=== PATIENT | male | born 1975 | race Caucasian/White ===

== ENCOUNTER 2019-01-25 03:38 | Emergency (ER) | payer BC, OTHER ==
[2019-01-25] MEDS ORDERED: MORPHINE 4 MG/ML SYR ONE (04:12)
[2019-01-25] MEDS ORDERED: ONDANSETRON 4 MG/2 ML VIAL ONE (04:12)
[2019-01-25] MEDS ORDERED: NA CHLORIDE 0.9% 1,000 ML ONE (04:12)
[2019-01-25 04:23] LABS: Absolute Lymphocytes (CBC) 0.7 K/uL (0.7-4.9); Absolute Monocytes 0.5 K/uL (0.1-1.3); Absolute Neutrophil 12.4 K/uL (1.8-8.0); Basophils % 0.4 % (0-1.3); Hematocrit 47.7 % (39.6-49.0); Lymphocytes % 5.4 % (15.3-44.8); MPV 10.2 fL (7.6-11.3); Monocytes % 3.5 % (3.3-12.3); RBC Red Blood Cell Count 5.34 M/uL (4.33-5.43)
[2019-01-25 04:34] LABS: Urine Blood 3+ (NEG); Urine Glucose NEGATIVE (NEG); Urine Protein 1+ (NEG); Urine Specific Gravity >1.030 (1.005-1.030); Urine pH 5.5 (5.0-7.0)
[2019-01-25 04:40] LABS: Albumin 4.3 g/dL (3.4-5.0); Bilirubin Direct 0.2 mg/dL (0-0.2); Bilirubin Total 0.7 mg/dL (0.2-1.0); Potassium 3.7 mmol/L (3.5-5.1); Protein, Total 8.2 g/dL (6.4-8.2)
[2019-01-25] MEDS ORDERED: KETOROLAC 30 MG/ML INJ ONE (05:05)
[2019-01-25] MEDS ORDERED: TAMSULOSIN 0.4 MG SR CAP ONE (05:05)
[2019-01-25] MEDS ORDERED: MAGNESIUM SULFATE 1 gm IVPB 1 GM/100 ML BAG IV ONE (05:06)
--- NOTE | 2019-01-25 06:17 | ER ---
Nurse's Notes [facility] Name: Myles Kingsley Age: 43 yrs Sex: Male : 1975 Arrival Date: 01/25/2019 Time: 03:39 Bed 19 Private MD: Diagnosis: Ureterolithiasis Presentation: 01/25 03:46 Presenting complaint: Patient states: at 0800 on 01/24/19 left flank pain and lower abd ak1 pain X3 hours. pain resolved and returned at 2100 after dinner. pt c/o N/V. Transition of care: patient was not received from another setting of care. Onset of symptoms was January 24, 2019. Risk Assessment: Do you want to hurt yourself or someone else? Patient reports no desire to harm self or others. Initial Sepsis Screen: Does the patient meet any 2 criteria? No. Patient's initial sepsis screen is negative. Does the patient have a suspected source of infection? No. Patient's initial sepsis screen is negative. Care prior to arrival: None. 03:46 Method Of Arrival: Ambulatory ak1 03:46 Acuity: ELBA 3 ak1 Triage Assessment: 03:46 General: Appears in no apparent distress. Behavior is cooperative. Pain: Complains of ak1 pain in left flank, lower abd. Historical: - Allergies: 03:46 No Known Allergies; ak1 - Home Meds: 03:46 None [Active]; ak1 - PMHx: 03:46 None; ak1 - PSHx: 03:46 None; ak1 - Immunization history:: Adult Immunizations not up to date. - Social history:: Smoking status: Patient/guardian denies using tobacco. - Ebola Screening: : No symptoms or risks identified at this time. - Family history:: not pertinent. - Hospitalizations: : No recent hospitalization is reported. Screenin:48 Abuse screen: Denies threats or abuse. Denies injuries from another. Nutritional rr5 screening: No deficits noted. Tuberculosis screening: No symptoms or risk factors identified. Fall Risk IV access (20 points). Total Strange Fall Scale indicates No Risk (0-24 pts). Assessment: 03:45 General: Appears in no apparent distress. uncomfortable, Behavior is calm, cooperative, rr5 appropriate for age. Pain: Complains of pain in right lower quadrant and left lower quadrant Pain radiates to flank Pain currently is 9 out of 10 on a pain scale. Quality of pain is described as aching, Pain began gradually, Is intermittent. 03:45 Neuro: Level of Consciousness is awake, alert, obeys commands, Oriented to person, rr5 place, time, situation, Appropriate for age. Cardiovascular: Capillary refill < 3 seconds Patient's skin is warm and dry. Respiratory: Airway is patent Respiratory effort is even, unlabored, Respiratory pattern is regular, symmetrical. GI: Abdomen is round Bowel sounds present X 4 quads. Abd is non tender Guarding noted in right lower quadrant and left lower quadrant Reports lower abdominal pain, nausea, vomiting. : No signs and/or symptoms were reported regarding the genitourinary system. EENT: No signs and/or symptoms were reported regarding the EENT system. Derm: Skin is intact, Skin temperature is warm. Musculoskeletal: Capillary refill < 3 seconds, Range of motion: intact in all extremities. 04:45 Reassessment: Patient appears in no apparent distress at this time. Patient is alert, rr5 oriented x 3, equal unlabored respirations, skin warm/dry/pink. on side lying position, feels much better now. Patient states feeling better. Patient states symptoms have improved. 05:47 Reassessment: Patient appears in no apparent distress at this time. Patient and/or rr5 family updated on plan of care and expected duration. Pain level reassessed. Patient is alert, oriented x 3, equal unlabored respirations, skin warm/dry/pink. i feel better now. zero pain as verbalized by the patient. Patient denies pain at this time. Patient states feeling better. Patient states symptoms have improved. 06:40 Reassessment: Patient appears in no apparent distress at this time. Patient and/or rr5 family updated on plan of care and expected duration. Pain level reassessed. Patient is alert, oriented x 3, equal unlabored respirations, skin warm/dry/pink. discharge instruction given and explained without complaints made. Patient denies pain at this time. Patient states feeling better. Patient states symptoms have improved. Vital Signs: 03:44 BP 148 / 98; Pulse 98; Resp 16; Pulse Ox 98% on R/A; Weight 82.55 kg (R); Height 5 ft. ak1 10 in. (177.80 cm) (R); Pain 9/10; 03:46 Temp 99.1; rr5 04:45 BP 147 / 99; Pulse 83; Resp 18; Pulse Ox 98% on R/A; Pain 4/10; rr5 05:45 BP 138 / 95; Pulse 80; Resp 16; Pulse Ox 99% ; Pain 0/10; rr5 06:30 BP 128 / 85; Pulse 75; Resp 17; Temp 98.6; Pulse Ox 99% ; Pain 0/10; rr5 03:44 Body Mass Index 26.11 (82.55 kg, 177.80 cm) ak1 ED Course: 03:39 Patient arrived in ED. am2 03:39 Marquise Kebede MD is Attending Physician. rn 03:45 Arm band placed on Patient placed in an exam room, on a stretcher, on pulse oximetry, ak1 Patient notified of wait time. 03:46 Sam Kramer, EFREN is Primary Nurse. rr5 03:48 Triage completed. ak1 03:48 Patient has correct armband on for positive identification. Bed in low position. Call rr5 light in reach. Pulse ox on. NIBP on. 04:11 CT Stone Protocol In Process Unspecified. EDMS 04:15 Inserted saline lock: 22 gauge in right antecubital area, using aseptic technique. cm6 06:16 Beth August MD is Referral Physician. rn 06:41 No provider procedures requiring assistance completed. IV discontinued, intact, rr5 bleeding controlled, No redness/swelling at site. Pressure dressing applied. Administered Medications: 04:20 Drug: Zofran 4 mg Route: IVP; Site: right antecubital; rr5 05:20 Follow up: Response: No adverse reaction rr5 04:20 Drug: NS 0.9% 1000 ml Route: IV; Rate: 1000 ml; Site: right antecubital; rr5 05:30 Follow up: Response: No adverse reaction; IV Status: Completed infusion; IV Intake: rr5 1000ml 04:23 Drug: morphine 4 mg Route: IVP; Site: right antecubital; rr5 05:49 Follow up: Response: No adverse reaction rr5 04:54 Drug: Magnesium Sulfate 1 grams Route: IVPB; Infused Over: 1 hrs; Site: right rr5 antecubital; 05:49 Follow up: Response: No adverse reaction; Marked relief of symptoms; IV Status: rr5 Completed infusion; IV Intake: 100ml 04:55 Drug: TORadol - Ketorolac 15 mg Route: IVP; Site: right antecubital; rr5 05:49 Follow up: Response: No adverse reaction rr5 04:55 Drug: Flomax 0.4 mg Route: PO; rr5 05:49 Follow up: Response: No adverse reaction rr5 Intake: 05:30 IV: 1000ml; Total: 1000ml. rr5 05:49 IV: 100ml; Total: 1100ml. rr5 Outcome: 06:16 Discharge ordered by . rn 06:41 Discharged to home ambulatory, with family. rr5 06:41 Condition: stable 06:41 Discharge instructions given to patient, Instructed on discharge instructions, follow up and referral plans. medication usage, Demonstrated understanding of instructions, follow-up care, medications, Prescriptions given X 3. 06:43 Patient left the ED. rr5 Signatures: Dispatcher [employer] EDMarquise Ramírez MD MD rn Krenek, Amber, RN RN ak1 Marleny Huitron Raymond, RN RN rr5 Sarahy Marroquin 6
--- NOTE | 2019-01-25 06:17 | EDPHYS ---
Physician Documentation [facility] Name: Myles Kingsley Age: 43 yrs Sex: Male : 1975 Arrival Date: 01/25/2019 Time: 03:39 Bed 19 Private MD: ED Physician Marquise Kebede HPI: 01/25 06:11 This 43 yrs old Male presents to ER via Ambulatory with complaints of rn Abdominal Pain. 06:11 The patient presents with abdominal pain in the left lower quadrant. Onset: The rn symptoms/episode began/occurred yesterday. The symptoms do not radiate. Associated signs and symptoms: Pertinent positives: nausea and vomiting, nausea, Pertinent negatives: blood in stools, chest pain, constipation, diarrhea, fever. Modifying factors: The symptoms are alleviated by nothing, the symptoms are aggravated by nothing. Severity of pain: At its worst the pain was moderate in the emergency department the pain is unchanged. The patient has not experienced similar symptoms in the past. Reports left flank pain and LLQ abd pain, assoc with nausea, went away yesterday then returned today, had darker than normal urine. No fever. . Historical: - Allergies: 03:46 No Known Allergies; ak1 - Home Meds: 03:46 None [Active]; ak1 - PMHx: 03:46 None; ak1 - PSHx: 03:46 None; ak1 - Immunization history:: Adult Immunizations not up to date. - Social history:: Smoking status: Patient/guardian denies using tobacco. - Ebola Screening: : No symptoms or risks identified at this time. - Family history:: not pertinent. - Hospitalizations: : No recent hospitalization is reported. ROS: 06:11 Constitutional: Negative for fever, chills, and weight loss, Eyes: Negative for injury, rn pain, redness, and discharge, Cardiovascular: Negative for chest pain, palpitations, and edema, Respiratory: Negative for shortness of breath, cough, wheezing, and pleuritic chest pain, Abdomen/GI: + left abd pain : + dysuria and dark urine MS/Extremity: Negative for injury and deformity, Skin: Negative for injury, rash, and discoloration, Neuro: Negative for headache, weakness, numbness, tingling, and seizure. Exam: 06:11 Constitutional: This is a well developed, well nourished patient who is awake, alert, rn appears uncomfortable Head/Face: Normocephalic, atraumatic. ENT: dry MM Cardiovascular: Regular rate and rhythm, No pulse deficits. Respiratory: Lungs have equal breath sounds bilaterally, clear to auscultation. No increased work of breathing, no retractions or nasal flaring. Abdomen/GI: soft, mild bilateral lower abd tenderness, no rebound Back: No spinal tenderness. No costovertebral tenderness. Full range of motion. Skin: Warm, dry MS/ Extremity: Pulses equal, no cyanosis. Neurovascular intact. Full, normal range of motion. Equal circumference. Neuro: Awake and alert, GCS 15, oriented to person, place, time, and situation. Cranial nerves II-XII grossly intact. Motor strength 5/5 in all extremities. Sensory grossly intact. Vital Signs: 03:44 BP 148 / 98; Pulse 98; Resp 16; Pulse Ox 98% on R/A; Weight 82.55 kg (R); Height 5 ft. ak1 10 in. (177.80 cm) (R); Pain 9/10; 03:46 Temp 99.1; rr5 04:45 BP 147 / 99; Pulse 83; Resp 18; Pulse Ox 98% on R/A; Pain 4/10; rr5 05:45 BP 138 / 95; Pulse 80; Resp 16; Pulse Ox 99% ; Pain 0/10; rr5 06:30 BP 128 / 85; Pulse 75; Resp 17; Temp 98.6; Pulse Ox 99% ; Pain 0/10; rr5 03:44 Body Mass Index 26.11 (82.55 kg, 177.80 cm) ak1 MDM: 03:39 Patient medically screened. rn 06:11 Differential diagnosis: diverticulitis, non-specific abd pain, Ureterolithiasis, rn urinary tract infection. Data reviewed: vital signs, nurses notes, lab test result(s), radiologic studies, CT scan, and as a result, I will discharge patient. Counseling: I had a detailed discussion with the patient and/or guardian regarding: the historical points, exam findings, and any diagnostic results supporting the discharge/admit diagnosis, lab results, radiology results, the need for outpatient follow up, to return to the emergency department if symptoms worsen or persist or if there are any questions or concerns that arise at home. Response to treatment: the patient's symptoms have markedly improved after treatment, the patient's condition has returned to base line, the patient is now symptom free, patient is well hydrated. and as a result, I will discharge patient. Special discussion: I discussed with the patient/guardian in detail that at this point there is no indication for admission to the hospital. It is understood, however, that if the symptoms persist or worsen the patient needs to return immediately for re-evaluation. Based on the history and exam findings, there is no indication for further emergent testing or inpatient evaluation. I discussed with the patient/guardian the need to see the urologist for further evaluation of the symptoms. 01/25 03:53 Order name: Basic Metabolic Panel; Complete Time: 04:46 rn 01/25 03:53 Order name: CBC with Diff; Complete Time: 04:46 rn 01/25 03:53 Order name: Hepatic Function; Complete Time: 04:46 rn 01/25 03:53 Order name: Lipase; Complete Time: 04:46 rn 01/25 03:53 Order name: CT Stone Protocol rn 01/25 04:30 Order name: Urine Dipstick--Ancillary (enter results); Complete Time: 04:46 ak1 01/25 03:53 Order name: IV Saline Lock; Complete Time: 04:19 rn 01/25 03:53 Order name: Labs collected and sent; Complete Time: 04:19 rn Administered Medications: 04:20 Drug: Zofran 4 mg Route: IVP; Site: right antecubital; rr5 05:20 Follow up: Response: No adverse reaction rr5 04:20 Drug: NS 0.9% 1000 ml Route: IV; Rate: 1000 ml; Site: right antecubital; rr5 05:30 Follow up: Response: No adverse reaction; IV Status: Completed infusion; IV Intake: rr5 1000ml 04:23 Drug: morphine 4 mg Route: IVP; Site: right antecubital; rr5 05:49 Follow up: Response: No adverse reaction rr5 04:54 Drug: Magnesium Sulfate 1 grams Route: IVPB; Infused Over: 1 hrs; Site: right rr5 antecubital; 05:49 Follow up: Response: No adverse reaction; Marked relief of symptoms; IV Status: rr5 Completed infusion; IV Intake: 100ml 04:55 Drug: TORadol - Ketorolac 15 mg Route: IVP; Site: right antecubital; rr5 05:49 Follow up: Response: No adverse reaction rr5 04:55 Drug: Flomax 0.4 mg Route: PO; rr5 05:49 Follow up: Response: No adverse reaction rr5 Disposition: 01/25/19 06:16 Discharged to Home. Impression: Ureterolithiasis. - Condition is Stable. - Discharge Instructions: Kidney Stones, Dietary Guidelines to Help Prevent Kidney Stones. - Prescriptions for Ibuprofen 800 mg Oral Tablet - take 1 tablet by ORAL route every 12 hours As needed take with food; 20 tablet. Tylenol- Codeine #3 300-30 mg Oral Tablet - take 1 tablet by ORAL route every 6 hours As needed; 20 tablet. Zofran ODT 4 mg Oral tablet,disintegrating - place 1 tablet by TRANSLINGUAL route every 8 hours As needed; 20 tablet. - Medication Reconciliation Form, Thank You Letter, Antibiotic Education, Prescription Opioid Use form. - Follow up: Beth August MD; When: As needed; Reason: Recheck today's complaints, Re-evaluation by your physician. - Problem is new. - Symptoms have improved. Signatures: Dispatcher [employer] EDMS Marquise Kebede MD MD rn Krenek, Amber RN RN ak1 Sam Kramer RN RN rr5 Corrections: (The following items were deleted from the chart) 06:43 06:16 01/25/2019 06:16 Discharged to Home. Impression: Ureterolithiasis. Condition is rr5 Stable. Forms are Medication Reconciliation Form, Thank You Letter, Antibiotic Education, Prescription Opioid Use. Follow up: Beth August; When: As needed; Reason: Recheck today's complaints, Re-evaluation by your physician. Problem is new. Symptoms have improved. rn
--- NOTE | 2019-01-25 14:32 | RAD REPORT ---
EXAM DESCRIPTION: CT - Stone Protocol - 01/25/2019 11:43 am CLINICAL HISTORY: Abdominal pain. Left flank pain COMPARISON: None. TECHNIQUE: Computed axial tomography of the abdomen pelvis was obtained without oral or IV contrast. Lack of IV and oral contrast limits evaluation of solid organs, bowel, and vessels. Coronal reformat tyrone images were obtained and reviewed. All CT scans are performed using dose optimization technique as appropriate and may include automated exposure control or mA/KV adjustment according to patient size. FINDINGS: Small bilateral renal calculi. Mild left hydronephrosis. Small calculus within the distal left ureter. Additional 5 millimeter calculus at the left ureteral vesicle junction. . The liver, spleen, pancreas and adrenals appear grossly normal There is no evidence of diverticulitis. The appendix appears normal IMPRESSION: 5 millimeter calculus left ureterovesical junction resulting in mild left hydronephrosis
== END 2019-01-25 06:43 | disposition home or self-care (01) ==
LOC: ER 03:38
DX: N20.1 Calculus of ureter (principal)
CPT/HCPCS: 36415; 74176; 76377; 80048; 80076; 81003; 83690; 85025; 96361; 96365; 96375; 99284; J2405; J3475; J7030

== ENCOUNTER 2025-05-30 04:37 | Emergency (ER) | payer OTHER ==
--- OUTSIDE RECORDS SUMMARY | 2025-05-30 04:40 | XMS REPORT | Continuity of Care Document ---
Author Name Unknown Address [address] [place] [address] [address] [facility] [address] [place] [address] Care Team Providers Care Control Director Name Role Phone Unavailable Unavailable Unavailable Encounters Start Date/Time End Date/Time Encounter Type Admission Type Attending Clinicians Care Facility Care Department Encounter ID Source 2021-09-23 12:25:49 Outpatient [facility] [id number] [facility]
[2025-05-30] MEDS ORDERED: KETOROLAC 30 MG/ML INJ ONE (05:04)
[2025-05-30] MEDS ORDERED: ONDANSETRON 4 MG/2 ML VIAL ONE (05:04)
[2025-05-30] MEDS ORDERED: MORPHINE 4 MG/ML SYR ONE (05:05)
[2025-05-30 05:13] LABS: Absolute Lymphocytes (CBC) 1.1 K/uL (0.7-4.9); Hematocrit 44.3 % (39.6-49.0); Hemoglobin 15.2 g/dL (13.6-17.9); MCH 30.1 pg (27.0-35.0); MCHC 34.4 g/dL (32.0-36.0); MCV 87.7 fL (80-100); MPV 9.3 fL (7.6-11.3); Nucleated RBC Absolute Count 0.0 (0-0); Nucleated Red Blood Cells % 0.0 % (0-0); RBC Red Blood Cell Count 5.05 M/uL (4.33-5.43); White Blood Count 9.70 thou/uL (4.3-10.9)
[2025-05-30 05:21] LABS: Sqamous Epithelial None Seen /HPF (None Seen); Urine Culture Reflex Order NOT NEEDED; Urine Microscopic Reflex YN ORDER UMIC
[2025-05-30 05:29] LABS: ALT/SGPT 31.0 U/L (16-61); AST/SGOT 11.0 U/L (15-37); Albumin 3.8 g/dL (3.4-5.0); Albumin/Globulin Ratio 1.1 (1.1-1.8); Alkaline Phosphatase 78.0 U/L (45-117); Anion Gap 9.6 mEq/L (5.0-15.0); BUN Blood Urea Nitrogen 15.0 mg/dL (7-18); Globulin 3.5 g/dL (2.3-3.5); Glucose Level 121.0 mg/dL (74-106); Lipase 15.0 U/L (13-75); Potassium 3.6 mEq/L (3.5-5.1)
--- NOTE | 2025-05-30 06:37 | RAD REPORT ---
INDICATION: ABD PAIN COMPARISON: CT abdomen pelvis January 25, 2019 TECHNIQUE: Enhanced CT of the abdomen and pelvis performed per protocol. Oral contrast was not administered. Mul tiplanar reconstructions were provided. Dose reduction techniques were utilized for this exam including automated exposure control, adjustmen ts to mA and/or kV according to patient's size, and the use of iterative reconstruction techniques. FINDINGS: LOWER CHEST: Lung bases are clear. LIVER: Unremarkable. SPLEEN: Unremarkable. PANCREAS: Unremarkable. ADRENALS: Unremarkable. KIDNEYS: 4 mm calculus at the left ureterovesicular junction causing mild left-sided hydroureteroneph rosis. Simple right renal cyst. No follow-up imaging recommended. GALLBLADDER: Unremarkable. VESSELS: Aortoiliac system normal in course and caliber. Circumaortic left renal vein. BOWEL: Unremarkable. APPENDIX: Normal. FLUID: No free fluid or abnormal fluid collection. ADENOPATHY: No pathologic adenopathy. BLADDER: Mild urinary bladder wall thickening. PELVIS: Prostate is normal. BONES: No acute bony abnormality. SOFT TISSUES: Unremarkable. IMPRESSION: 4 mm calculus at the left UVJ causing mild left-sided hydroureteronephrosis. Electronically signed by: Tomer Barriga DO 05/30/2025 06:34 AM CDT RP NR Due to temporary technical issues with the PACS/[employer] reporting system, reports are being se d by the in-house radiologist without review as a courtesy to ensure prompt reporting the interpreting radiologist is fully responsible for the content of the report. Transcribed Date/Time: 05/30/2025 6:37 AM
--- NOTE | 2025-05-30 06:59 | EDPHYS ---
Physician Documentation [facility] Name: Myles Kingsley Age: 49 yrs Sex: Male : 1975 Arrival Date: 05/30/2025 Time: 04:37 Bed 13 Private MD: ED Physician Aristeo Reed HPI: 05/30 05:30 This 49 yrs old Male presents to ER via Ambulatory with complaints of Abdominal Pain, tt7 Urinary Problem, Nausea. 05:30 Patient reports sharp/stabbing intermittent left flank pain which started yesterday, tt7 this morning he had some nausea with 1 episode of nonbloody nonbilious vomiting. Associated chills but no fever. He states he has had some difficulty urinating. Patient has history of kidney stones and reports he last had a kidney stone about 7 years ago. He reports his current symptoms feel similar to the last time he had a kidney stone. Historical: - Allergies: 04:52 No Known Allergies; br2 - PMHx: 04:52 None; br2 - PSHx: 04:52 None; br2 - Immunization history:: Adult Immunizations not up to date. - Infectious Disease History:: Denies. - Social history:: Smoking status: Patient denies any tobacco usage or history of. Patient/guardian denies using alcohol, street drugs. ROS: 05:32 Constitutional: negative for fever. Cardiovascular: negative for chest pain. tt7 Respiratory: negative for shortness of breath. MS/Extremity: negative for injury and deformity. Skin: negative for rash. Neuro: negative for focal weakness. 05:32 Abdomen/GI: Positive for nausea and vomiting, flank pain, Exam: 05:32 Constitutional: vital signs reviewed, well appearing. Head/Face: normocephalic, tt7 atraumatic. Eyes: no conjunctival injection, anicteric sclerae. ENT: mucus membranes moist. Neck: trachea midline, no JVD, no meningismus. Cardiovascular: regular rate and rhythm, no murmurs, no rubs, no lower extremity edema. Respiratory: normal respiratory effort, no accessory muscle use, lungs CTAB. Abdomen/GI: soft, nondistended, nontender, no guarding or rebound, negative Lucero's sign, no McBurney point tenderness. Back: normal ROM. Skin: warm, dry, intact, normal turgor, normal color, no rash. MS/ Extremity: normal ROM of extremities, no gross deformities. Neuro: alert and oriented with appropriate mental status, normal speech, follows commands, no focal neurologic deficits. Psych: appropriate mood and affect. Vital Signs: 04:50 BP 139 / 95; Pulse 82; Resp 18; Temp 97.4; Pulse Ox 99% ; Pain 7/10; br2 05:30 BP 126 / 94; Pulse 75; Resp 18; Pulse Ox 96% ; vc1 06:51 BP 137 / 85; Pulse 84; Resp 18; Pulse Ox 96% ; vc1 07:15 BP 114 / 81; Pulse 70; Resp 18; Pulse Ox 94% on R/A; ar8 07:20 Pain 1/10; ar8 07:20 Pain 1/10; ar8 04:50 Pain Scale: Adult br2 07:20 Pain Scale: Adult ar8 07:20 Pain Scale: Adult ar8 MDM: 04:47 Medical Screening Exam initiated tt7 05:32 Differential diagnosis: Nonspecific abd pain, gastritis, pancreatitis, appendicitis, tt7 diverticulitis, Ureterolithiasis, pyelonephritis, acute cystitis. Data reviewed: vital signs, nurses notes, lab test result(s), radiologic studies. ED course: 49-year-old male with left flank pain, history of kidney stones, vital signs are stable, physical exam reassuring, laboratory studies ordered as well as urinalysis and CT imaging of the abdomen/pelvis, patient administered IV Toradol, IV antiemetic, and IV morphine. 07:04 ED course: Laboratory studies are reassuring, no evidence of infection, CT imaging tt7 confirms 4 mm ureteral calculus at the ureterovesicular junction, I reassessed the patient and his pain is totally resolved, will give him dose of Flomax and discharged with NSAID and Flomax and return precautions, after completion of the patient's emergency department evaluation, I do not suspect a life-threatening or disabling process. Patient is medically stable and not in need of emergent medical intervention. I had a detailed discussion with the patient regarding the historical points, exam findings, emergency department evaluation, diagnostic results, and the discharge diagnosis. I instructed the patient on outpatient management of their condition. I discussed the need for outpatient follow-up with a primary care physician. I informed the patient on return precautions, including the need to return to the ED if symptoms do not improve, worsen, or if there are any questions or concerns that arise at home. The patient was discharged in stable condition. 05/30 04:57 Order name: CBC with Diff; Complete Time: 05:30 tt7 05/30 04:57 Order name: CMP; Complete Time: 05:30 tt7 05/30 04:57 Order name: Lipase; Complete Time: 05:30 tt7 05/30 04:57 Order name: UA Rfx Adan Cult if indicated; Complete Time: 05:30 tt7 05/30 04:57 Order name: CT Abd/Pelvis - IV Contrast Only; Complete Time: 06:39 tt7 05/30 04:57 Order name: IV Saline Lock; Complete Time: 05:09 tt7 05/30 04:57 Order name: Labs collected and sent; Complete Time: 05:09 tt7 Administered Medications: 05:14 Drug: TORadol - Ketorolac IVP 15 mg IVP once Route: IVP; Site: right antecubital; cc6 07:20 Follow up: Pain 1/10 Adult; Response: No adverse reaction; Pain is decreased ar8 05:14 Drug: Ondansetron IVP 4 mg IVP once; over 2 minutes Route: IVP; Site: right antecubital;cc6 07:20 Follow up: Response: No adverse reaction ar8 05:14 Drug: morphine IVP or IV 4 mg IVP once over 4 mins Route: IVP; Infused Over: 4 mins; cc6 Site: right antecubital; 07:20 Follow up: Pain 1/10 Adult; Response: No adverse reaction; Pain is decreased ar8 07:26 Drug: Flomax PO 0.4 mg PO once Route: PO; ar8 07:27 Follow up: Response: Medication administered at discharge. ar8 Disposition: 07:05 Co-signature as Attending Physician, Aristeo Reed DO. tt7 Disposition Summary: 05/30/25 06:58 Discharge Ordered Notes: Location: Home tt7 Problem: new tt7 Symptoms: are resolved tt7 Condition: Stable tt7 Diagnosis - Calculus of ureter tt7 Followup: tt7 - With: Emergency Department - When: As needed - Reason: Followup: tt7 - With: Private Physician - When: 1 - 2 days - Reason: Recheck today's complaints, Re-evaluation by your physician Discharge Instructions: - Discharge Summary Sheet tt7 - Kidney Stones, [id number] tt7 Forms: - Medication Reconciliation Form tt7 - Antibiotic Education tt7 - Prescription Opioid Use tt7 - Patient Portal Instructions tt7 - Leadership Thank You Letter tt7 Prescriptions: - Flomax 0.4 mg Oral capsule - take 1 capsule ORAL route daily for 10 days; 10 capsule; Refills: 0, Product tt7 Selection Permitted Signatures: Dispatcher [employer] Jania Maravilla RN RN br2 Christine Vasquez RN RN cc6 Carlos A Alicia RN RN ar8 Aristeo Reed, DO tt7 Corrections: (The following items were deleted from the chart) 04:58 04:58 Abdomen Pelvis W Con+CT.RAD.BRZ ordered. EDKY EDMS
--- NOTE | 2025-05-30 06:59 | ER ---
Nurse's Notes [facility] Name: Myles Kingsley Age: 49 yrs Sex: Male : 1975 Arrival Date: 05/30/2025 Time: 04:37 Bed 13 Private MD: Diagnosis: Calculus of ureter Presentation: 05/30 04:50 Chief complaint: Patient states: LEFT LATERAL SIDE OF ABDOMEN AND RADIATES TO LLQ, JUST br2 DRIBBLING WHEN HE ATTEMPTS TO URINATE. Coronavirus screen: Client denies travel out of the [place] in the last 14 days. Ebola Screen: Patient denies exposure to infectious person. Initial Sepsis Screen: Does the patient meet any 2 criteria? No. Patient's initial sepsis screen is negative. Does the patient have a suspected source of infection? No. Patient's initial sepsis screen is negative. Risk Assessment: Do you want to hurt yourself or someone else? Patient reports no desire to harm self or others. Onset of symptoms was May 30, 2025 at 01:00. 04:50 Method Of Arrival: Ambulatory br2 04:50 Acuity: ELBA 3 br2 Triage Assessment: 04:52 General: Appears uncomfortable, Behavior is calm, cooperative. Pain: Complains of pain br2 in anterior aspect of left lateral abdomen Pain radiates to left lower quadrant Pain currently is 7 out of 10 on a pain scale. Historical: - Allergies: 04:52 No Known Allergies; br2 - PMHx: 04:52 None; br2 - PSHx: 04:52 None; br2 - Immunization history:: Adult Immunizations not up to date. - Infectious Disease History:: Denies. - Social history:: Smoking status: Patient denies any tobacco usage or history of. Patient/guardian denies using alcohol, street drugs. Screenin:45 [facility] ED Fall Risk Assessment (Adult) History of falling in the last 3 months, vc1 including since admission No falls in past 3 months (0 pts) Confusion or Disorientation No (0 pts) Intoxicated or Sedated No (0 pts) Impaired Gait No (0 pts) Mobility Assist Device Used No (0 pt) Altered Elimination Yes (1 pt) Score/Fall Risk Level 0 - 2 = Low Risk Oriented to surroundings, Maintained a safe environment, Educated pt \T\ family on fall prevention, incl call for assistance when getting out of bed, Assessed \T\ reinforced patient's understanding of fall precautions, Hourly rounding (assess needs \T\ fall precautionary measures) done. Abuse screen: Denies threats or abuse. Nutritional screening: No deficits noted. Tuberculosis screening: No symptoms or risk factors identified. Assessment: 04:50 General: Appears in no apparent distress. uncomfortable, Behavior is calm, cooperative, cc6 appropriate for age. Pain: Complains of pain in anterior aspect of right lateral abdomen, left upper quadrant and left lower quadrant Pain does not radiate. Pain currently is 9 out of 10 on a pain scale. Quality of pain is described as sharp, Pain began 1 hour ago. Is continuous. Neuro: Level of Consciousness is awake, alert, obeys commands, Oriented to person, place, time, situation. Cardiovascular: Patient's skin is warm and dry. Respiratory: Airway is patent Respiratory effort is even, unlabored, Respiratory pattern is regular, symmetrical. GI: Bowel sounds present X 4 quads. Abd is soft and non tender X 4 quads. : No signs and/or symptoms were reported regarding the genitourinary system. EENT: No signs and/or symptoms were reported regarding the EENT system. Derm: No signs and/or symptoms reported regarding the dermatologic system. Musculoskeletal: Circulation, motion, and sensation intact. Range of motion: intact in all extremities. 06:52 Reassessment: Patient appears in no apparent distress at this time. Patient and/or vc1 family updated on plan of care and expected duration. Pain level reassessed. Patient is alert, oriented x 3, equal unlabored respirations, skin warm/dry/pink. Vital Signs: 04:50 BP 139 / 95; Pulse 82; Resp 18; Temp 97.4; Pulse Ox 99% ; Pain 7/10; br2 05:30 BP 126 / 94; Pulse 75; Resp 18; Pulse Ox 96% ; vc1 06:51 BP 137 / 85; Pulse 84; Resp 18; Pulse Ox 96% ; vc1 07:15 BP 114 / 81; Pulse 70; Resp 18; Pulse Ox 94% on R/A; ar8 07:20 Pain 1/10; ar8 07:20 Pain 1/10; ar8 04:50 Pain Scale: Adult br2 07:20 Pain Scale: Adult ar8 07:20 Pain Scale: Adult ar8 ED Course: 04:39 Patient arrived in ED. mr 04:45 Patient has correct armband on for positive identification. Bed in low position. Call vc1 light in reach. Adult w/ patient. Provided Education on: plan of care; call light. Pulse ox on. NIBP on. 04:47 Aristeo Reed DO is Attending Physician. tt7 04:52 Triage completed. br2 04:52 Arm band placed on. br2 04:58 Christine Vasquez, EFREN is Primary Nurse. cc6 05:08 Inserted saline lock: 20 gauge in right forearm, using aseptic technique. Blood vc1 collected. Flushed with 10 mL NS. 05:09 CBC with Diff Sent. cc6 05:09 CMP Sent. cc6 05:09 Lipase Sent. cc6 05:55 CT Abd/Pelvis - IV Contrast Only In Process Unspecified. EDMS 07:26 No provider procedures requiring assistance completed. IV discontinued, intact, ar8 bleeding controlled, No redness/swelling at site. Pressure dressing applied. Administered Medications: 05:14 Drug: TORadol - Ketorolac IVP 15 mg IVP once Route: IVP; Site: right antecubital; cc6 07:20 Follow up: Pain 1/10 Adult; Response: No adverse reaction; Pain is decreased ar8 05:14 Drug: Ondansetron IVP 4 mg IVP once; over 2 minutes Route: IVP; Site: right antecubital;cc6 07:20 Follow up: Response: No adverse reaction ar8 05:14 Drug: morphine IVP or IV 4 mg IVP once over 4 mins Route: IVP; Infused Over: 4 mins; cc6 Site: right antecubital; 07:20 Follow up: Pain 1/10 Adult; Response: No adverse reaction; Pain is decreased ar8 07:26 Drug: Flomax PO 0.4 mg PO once Route: PO; ar8 07:27 Follow up: Response: Medication administered at discharge. ar8 Medication: 05:18 VIS not applicable for this client. vc1 Outcome: 06:58 Discharge ordered by . tt7 07:26 Discharged to home ambulatory, ar8 07:26 Condition: stable 07:26 Discharge instructions given to patient, significant other, Instructed on discharge instructions, follow up and referral plans. medication usage, Demonstrated understanding of instructions, follow-up care, medications, Prescriptions given X 07:28 Patient left the ED. ar8 Signatures: Dispatcher [employer] EDME RoeStephanie moreno, Sal Huang mr Jody Pelayo, RN RN vc1 Jania Flaherty, RN RN br2 Christine Vasquez RN RN cc6 Carlos A Alicia RN RN ar8 Aristeo Reed, DO EDMOND tt7
[2025-05-30] MEDS ORDERED: TAMSULOSIN 0.4 MG SR CAP ONE (07:17)
[2025-05-30 07:32] VITALS: TEMP 97.4
[2025-05-30 07:38] VITALS: BP 114/81; O2SAT 94
== END 2025-05-30 07:28 | disposition home or self-care (01) ==
LOC: ER 04:37
DX: N20.1 Calculus of ureter (principal); Z87.442 Personal history of urinary calculi
CPT/HCPCS: 85025; 81001; 36415; 83690; 80053; 74177; 96375; 96374; 99284; Q9967; J1885; J2405